=== PATIENT | female | born 2000 | race Caucasian/White ===

== ENCOUNTER 2023-02-17 17:35 | Emergency (ER) | payer OTHER, SELFPAY ==
[2023-02-17 17:37] VITALS: BP 112/61; PULSE 85; RESP 18; O2SAT 100
--- NOTE | 2023-02-17 18:48 | ED.GENADULT ---
HPI - General Adult General Chief complaint: Animal Bite Stated complaint: Bat Exposure Time Seen by Provider: 02/17/23 18:10 Source: patient Mode of arrival: ambulatory Limitations: no limitations History of Present Illness HPI narrative: This is a 22-year-old female who presents to the ED with chief complaint of possible bat exposure. She states she was staying the night at a friend's house when they saw a bat fly around the room at 5 AM. She denies any known exposure to saliva or bites to herself. She reports that it was probably flying around while they were sleeping. She is unsure of the level of the exposure she had. Denies any pain. Denies any further complaints. Related Data Allergies Allergy/AdvReac Type Severity Reaction Status Date / Time No Known Allergies Allergy Verified 02/17/23 17:41 Review of Systems Review of Systems: All systems as dictated in HPI Exam Narrative: GENERAL: Well-appearing, well-nourished, and in no acute distress. HEAD: Normocephalic, atraumatic. EYES: PERRLA and EOMI. ENT: Nares clear, no rhinorrhea or epistaxis. Mucous membranes moist. Oropharynx without tonsillar hypertrophy exudate or other lesions. NECK: Supple. No adenopathy or masses. CHEST: No respiratory distress. Clear to auscultation. No wheezes rales or rhonchi HEART: Regular rate and rhythm. No murmur heard. Normal peripheral pulses. ABDOMEN: Soft, nontender, nondistended, normal active bowel sounds. MSK: Normal range of motion. No edema. SKIN: Warm, dry, no rash. No wounds or lesions evident. NEURO: Alert and oriented x3. No focal deficits. PSYCH: Normal mood and affect. Course Vital Signs Vital signs: Vital Signs Pulse Rate 85 02/17/23 17:37 Respiratory Rate 18 02/17/23 17:37 Blood Pressure 112/61 02/17/23 17:37 Pulse Oximetry 100 02/17/23 17:37 Oxygen Delivery Room Air 02/17/23 17:37 Pulse Rate 85 02/17/23 17:37 Respiratory Rate 18 02/17/23 17:37 Blood Pressure 112/61 02/17/23 17:37 Pulse Oximetry 100 02/17/23 17:37 Oxygen Delivery Room Air 02/17/23 17:37 Medical Decision Making MDM Narrative Medical decision making narrative: This is a 22-year-old female who presents to the ED with chief complaint of bat exposure. Unsure of any bites. Vitals are normal. Exam does not reveal any obvious lesions. Discussed with the patient risk versus benefits of rabies prophylaxis or for going since she has not had any known bites. We agreed that since her exposure level is unknown at this time that she would prefer to cover with the rabies prophylaxis just in case. She was given rabies Ig intramuscularly as well is the first dose of vaccine today. Prescription given for subsequent doses. Encouraged her to take this to the health department or return to the ER for this. Pt will be discharged in stable condition. Return precautions given. Pt is understanding and agreeable with plan for discharge and follow-up with PCP/health department. Vital Signs Vital Signs: Vital Signs Pulse Rate 85 02/17/23 17:37 Respiratory Rate 18 02/17/23 17:37 Blood Pressure 112/61 02/17/23 17:37 Pulse Oximetry 100 02/17/23 17:37 Oxygen Delivery Room Air 02/17/23 17:37 Pulse Rate 85 02/17/23 17:37 Respiratory Rate 18 02/17/23 17:37 Blood Pressure 112/61 02/17/23 17:37 Pulse Oximetry 100 02/17/23 17:37 Oxygen Delivery Room Air 02/17/23 17:37 Discharge Plan Discharge Clinical Impression: Exposure to bat without known bite Patient Disposition: Home, Self-Care Condition: Stable Instructions: Antibiotic Form Additional Instructions: We are covering with rabies vaccine for possible bat exposure. Take the prescription pad with you to the health department to get subsequent injections. You you can get these at the health department. Return to the ER for any new or worsening symptoms. Follow-up/Referrals: Anna Murdock MD
--- NOTE | 2023-02-17 18:56 | PC.NURSE ---
Pt states she has no heredia but has had exposure. Denies pain.
[2023-02-17] MEDS: RABIES VACCINE (RABAVERT) 2.5 UNITS VIAL IM (19:24)
[2023-02-17] MEDS: RABIES IMMUNE GLOBULIN/PF 1,500 UNITS/5 ML VIAL 1360 UNITS IM (19:27)
== END 2023-02-17 19:36 | disposition home or self-care (01) ==
PROVIDERS: Emergency Provider Physician Assistant; PCP Pediatrics
DX: Z20.3 Contact with and (suspected) exposure to rabies (principal); Z23 Encounter for immunization
CPT/HCPCS: 90471; 90675; 96372; 99283; 90375